=== PATIENT | male | born 1955 | race African-American/Black ===

== ENCOUNTER 2025-02-19 12:24 | Emergency (ER) | payer MEDICARE, OTHER ==
[~2025-02-19] VITALS: Ht 182.9 cm; Wt 86.0 kg
[2025-02-19 12:31] VITALS: O2SAT 100
[2025-02-19 13:06] LABS: BASOPHILS % 0.9 % (0.0-2.0); EOSINOPHILS % 5.2 % (0.0-5.0); HEMATOCRIT. 38.3 % (42.0-52.0); HEMOGLOBIN. 13.3 g/dL (14.0-18.0); LYMPHOCYTES % 37.9 % (20.0-50.0); MEAN PLATELET VOLUME 9.5 fl (7.4-10.4); MONOCYTES % 7.1 % (2.0-8.0); NEUTROPHILS % 48.9 % (40.0-76.0); PLATELET 169 x1000/uL (130-400); RED BLOOD CELL COUNT 4.41 mill/uL (4.7-6.1); RED CELL DISTRIBUTION WIDTH 14.1 % (11.6-14.6)
[2025-02-19 13:17] LABS: CREATININE 1.1 mg/dL (0.6-1.3)
[2025-02-19 13:18] LABS: UREA NITROGEN BLOOD 13 mg/dL (9-23)
[2025-02-19 13:19] LABS: ASPARTATE AMINOTRANSFERASE 19 IU/L (<34); TROPONIN I HIGH SENSITIVITY 10 ng/L (3.0-53)
[2025-02-19 13:20] LABS: BILIRUBIN DIRECT 0.3 mg/dL (<=3.0); BILIRUBIN TOTAL 0.8 mg/dL (0.1-1.0); PROTEIN TOTAL 6.8 g/dL (6.0-8.3)
[2025-02-19] MEDS: IOHEXOL-300 100 ML BOTTLE ONE (14:49)
[2025-02-19 15:23] VITALS: BP 185/99; PULSE 70; RESP 16; TEMP 36.5; O2SAT 99
== END 2025-02-19 15:35 | disposition home or self-care (01) ==
LOC: ER 12:24
DX: R22.0 Localized swelling, mass and lump, head (principal); E11.9 Type 2 diabetes mellitus without complications; E78.00 Pure hypercholesterolemia, unspecified; I25.2 Old myocardial infarction; I10 Essential (primary) hypertension; Z86.73 Personal history of transient ischemic attack (TIA), and cerebral infarction without residual deficits
CPT/HCPCS: 99285; 70487; 71045; 80076; 80048; 83690; 85025; 84484; 36415; 93005; Q9967